=== PATIENT | male | born 1955 | race Caucasian/White ===

== ENCOUNTER 2017-03-02 06:22 | Day surgery (SDC) | payer MEDICAID ==
[2017-03-02] MEDS ORDERED: LR 1,000 ML IV ONE (06:57)
[2017-03-02] MEDS ORDERED: LIDOCAINE 1% 2 ML INJ ONE (07:16)
--- NOTE | 2017-03-02 07:17 | PDGENHP ---
History & Physical Chief Complaint: screening colon History of Present Illness: screening colon Pertinent Past, Social, Family History: Hx of cardiac cath 2003. no fam hx of colon cancer Relevant Physical Exam: NAD. RRR. CTAB. no edema. abd nontneder, soft, nd
[2017-03-02] MEDS ORDERED: ONDANSETRON 4 MG/2 ML VIAL IVP PRN ×2 (07:57→08:46)
[2017-03-02] MEDS ORDERED: NALOXONE HCL 0.4 MG/ML INJ IVP PRN ×2 (07:57→08:46)
--- NOTE | 2017-03-02 07:57 | PDANEPAE ---
ANE History of Present Illness patient presents for colonoscopy ANE Past Medical History - Cardiovascular History Hx Hypertension: No Hx Arrhythmias: No Hx Chest Pain: No Hx Coronary Artery / Peripheral Vascular Disease: No Hx CHF / Valvular Disease: No Hx Palpitations: No - Pulmonary History Hx COPD: No Hx Asthma/Reactive Airway Disease: No Hx Recent Upper Respiratory Infection: No Hx Oxygen in Use at Home: No - Neurologic History Hx Cerebrovascular Accident: No Hx Seizures: No Hx Dementia: No - Endocrine History Hx Diabetes: No - Renal History Hx Renal Disorders: No - Liver History Hx Hepatic Disorders: No - Neurological & Psychiatric Hx Hx Neurological and Psychiatric Disorders: No - Cancer History Hx Cancer: No - Congenital Disorder History Hx Congenital Disorders: No - GI History Hx Gastrointestinal Disorders: No - Chronic Pain History Chronic Pain: No ANE Review of Systems - Exercise capacity METS (RN): 6 METS ANE Patient History - Allergies Allergies/Adverse Reactions: No Known Allergies Allergy (Verified 03/02/17 07:00) - Home Medications Home Medications: Herbals/Supplements -Info Only 03/01/17 [Last Taken 02/28/17] - NPO status NPO Since - Liquids (Date): 03/01/17 NPO Since - Liquids (Time): 09:00 NPO Since - Solids (Date): 03/01/17 NPO Since - Solids (Time): 09:00 - Smoking Hx Smoking Status: Never smoked - Family Anes Hx Family Hx Anesthesia Complications: NEG ANE Labs/Vital Signs - Vital Signs Blood Pressure: 117/72 Heart Rate: 59 Respiratory Rate: 16 Height: 170.18 cm Weight: 61.235 kg ANE Physical Exam - Airway Neck exam: FROM Mallampati Score: Class 1 Mouth exam: normal dental/mouth exam - Pulmonary Pulmonary: no respiratory distress - Cardiovascular Cardiovascular: regular rate and rhythym - ASA Status ASA Status: II ANE Anesthesia Plan Anesthesia Plan: GA with mask (rba discussed)
[2017-03-02] MEDS ORDERED: PROPOFOL/EMULSION 500 MG/50 ML BOTTLE IV ONE ×2 (08:03→08:08)
--- NOTE | 2017-03-02 08:33 | POSTOPPROG ---
Post Op Note Date of Operation: 03/02/17 Surgeon: Tr Esquivel Anesthesia: Other (Specify) (per anesthesia) Pre-op Diagnosis: average risk colon screening Post-op Diagnosis: colon polyp x 4, mild proctitis Indication: colon screening Procedure: Colonoscopy with polypectomy by snare and biopsy and biopsy proctitis Findings: polypectomy x 2 by snare and x 2 by biopsy forcps, biopsy procititis Inf/Abcess present in the surg proc area at time of surgery?: No Complications: none
--- NOTE | 2017-03-02 08:36 | POSTANESTH ---
Post Anesthetic Evaluation Cardiovascular Status: Normal, Stable Respiratory Status: Normal, Stable Level of Consciousness/Mental Status: Can Participate in Eval Pain Control: Adequate, Prn Tx Ordered Nausea/Vomiting Control: Adequate, Prn Tx Ordered Complications Possibly Related to Anesthesia: None Noted
[2017-03-02 09:03] VITALS: TEMP 97.5
[2017-03-02 09:36] VITALS: BP 114/72; PULSE 52; RESP 16; O2SAT 97
--- NOTE | 2017-03-02 13:23 | GPN ---
[f rep st] PROCEDURE NOTE DATE OF PROCEDURE: 03/02/2017 PROCEDURE: Colonoscopy with polypectomy. CONSENT: Informed consent was obtained from the patient after a thorough explanation of risks, bene fits, and alternatives to the procedure. MEDICATIONS GIVEN: Per Anesthesia. SEDATION: Per Anesthesia. DESCRIPTION OF EXAMINATION: After adequate sedation was achieved, the colonoscope was advanced unde r direct vision through the anal canal and as far as the appendiceal orifice and terminal ileum. Ap pendiceal orifice, terminal ileum were both photo documented. Retroflexion was performed in both th e ascending colon and the rectum. Findings as below. FINDINGS: 1. Normal terminal ileum. 2. One 3 mm cecal polyp and one 4 mm ascending colon polyp removed with cold snare. The cecal poly p was resected and retrieved. The ascending colon polyp was not clearly retrieved. 3. Diminutive ascending colon polyp removed with cold biopsy forceps and placed in the same jar as the other cecum polyp. 4. Diminutive transverse colon polyp was removed with cold biopsy forceps and placed in a separate jar. 5. Mild proctitis characterized by erythema and a few small erosions were noted in the distal rectu m. This was biopsied and placed in a separate jar for evaluation. 6. Medium somewhat irritated internal hemorrhoids were seen on retroflexion in the rectum. IMPRESSION: 1. A total of 4 polyps were removed with 3 being retrieved. Mild proctitis suspect related to prep . Biopsied and will await these results. 2. Internal hemorrhoids. RECOMMENDATIONS: 1. Resume prior medications and resume regular diet. 2. Tentative plan for repeat colonoscopy in 3 years given 4 polyps removed from the right colon and 1 was not retrieved although will await biopsy results to make final determination of recommended s urveillance interval. 3. Await biopsies regarding mild proctitis. If prep related, no further evaluation or treatment is needed. 4. If hemorrhoids are bleeding or causing itching, prolapse, or other symptoms, patient may follow up with me for hemorrhoid banding if desired. /[id number]/MODL
== END 2017-03-02 09:47 | disposition home or self-care (01) ==
LOC: FSGY 06:22
PROVIDERS: ATTEND Internal Medicine
PROC: 0DBH8ZX Excision of Cecum, Via Natural or Artificial Opening Endoscopic, Diagnostic (ICD-10-PCS; principal; 2017-03-02 08:00)
PROC: 0DBL8ZX Excision of Transverse Colon, Via Natural or Artificial Opening Endoscopic, Diagnostic (ICD-10-PCS; principal; 2017-03-02 08:00)
PROC: 0DBP8ZX Excision of Rectum, Via Natural or Artificial Opening Endoscopic, Diagnostic (ICD-10-PCS; principal; 2017-03-02 08:00)
PROC: 0DBK8ZX Excision of Ascending Colon, Via Natural or Artificial Opening Endoscopic, Diagnostic (ICD-10-PCS; principal; 2017-03-02 08:00)
DX: Z12.11 Encounter for screening for malignant neoplasm of colon (principal); D12.0 Benign neoplasm of cecum; D12.2 Benign neoplasm of ascending colon; D12.3 Benign neoplasm of transverse colon; K62.89 Other specified diseases of anus and rectum; K64.8 Other hemorrhoids
CPT/HCPCS: J2704

== ENCOUNTER → 2017-03-13 | Outpatient (CLI) | payer MEDICAID, OTHER | LOC: FIMAGING 09:58 | DX: Z13.6 Encounter for screening for cardiovascular disorders (principal); Z82.49 Family history of ischemic heart disease and other diseases of the circulatory system ==